=== PATIENT | female | born 1995 | race African-American/Black ===

== ENCOUNTER 2017-07-22 06:51 | Inpatient (IN) ==
[2017-07-22] MEDS: LACTATED RINGERS 1,000 ML IV SCH ×2 (07:10→16:55)
[2017-07-22] MEDS ORDERED: FAMOTIDINE 20 MG/2 ML VIAL IV ONE (07:11)
[2017-07-22] MEDS ORDERED: CITRIC ACID/SODIUM CITRATE 30 ML UDCUP PO ONE (07:11)
[2017-07-22] MEDS ORDERED: ceFAZolin 2,000 MG in PREMIX 1 EACH IV ONE (07:11)
[2017-07-22 07:48] LABS: Basophils % 0.1 % (0.0-0.8); Eosinophils # 0.1 10*3/uL (0.0-0.87); Eosinophils % 1.6 % (0.00-10.9); Hematocrit 33.4 VOL% (35.7-47.0); Hemoglobin 11.1 GM/DL (12.0-16.0); Immature Granulocytes % 0.6 %; Immature Granulocytes Absolute 0.05 #; Lymphocytes # 2.4 10*3/uL (1.4-4.0); Lymphocytes % 29.2 % (21.3-54.2); Mean Corpuscular HGB Conc 33.2 GM/DL (32-36); Mean Corpuscular Hemoglobin 29 PG (27-34); Mean Corpuscular Volume 86.5 FL (87-102); Mean Platelet Volume 11.9 FL (9.6-12.0); Monocytes # 0.5 10*3/uL (0.11-0.8); Monocytes % 6.4 % (1.7-12.7); Neutrophils # 5.1 10*3/uL (1.4-7.4); Neutrophils % 62.1 % (38.7-73.9); Platelet Count 187 T/CUMM (130-400); Red Blood Count 3.86 MC/CUMM (3.8-5.5); Red Cell Distribution Width 15.2 % (9.3-17.3); White Blood Count 8.3 T/CUMM (4-12)
[2017-07-22] MEDS ORDERED: OXYTOCIN/LR 20 UNIT/1,000 ML BAG IV ONE ×2 (07:59→09:14)
[2017-07-22] MEDS ORDERED: ACETAMINOPHEN 325 MG TABLET PO PRN (09:14)
[2017-07-22] MEDS ORDERED: ONDANSETRON 4 MG/2 ML VIAL IV PRN (09:14)
[2017-07-22] MEDS ORDERED: RHO(D) IMMUNE GLOBULIN 300 MCG SYRINGE IM ONE (09:14)
[2017-07-22] MEDS ORDERED: LACTATED RINGERS 1,000 ML IV SCH (09:30)
[2017-07-22] MEDS ORDERED: MIDAZOLAM 2 MG/2 ML VIAL ONE (09:30)
[2017-07-22] MEDS ORDERED: MORPHINE 10 MG/10 ML VIAL ONE (09:30)
[2017-07-22] MEDS ORDERED: ONDANSETRON 4 MG/2 ML VIAL ONE (09:30)
[2017-07-22] MEDS ORDERED: LACTATED RINGERS 2,000 ML IV ONE (09:31)
[2017-07-22] MEDS ORDERED: ACETAMINOPHEN 1,000 MG/100 ML VIAL IV ONE (09:31)
[2017-07-22 09:37] LABS: Apearance,Urine CLEAR (Clear); Bilirubin,Urine Negative (Negative); Blood, Urine Negative (Negative); Glucose,Urine (UA) Negative (Negative); Ketones,Urine Negative (Negative); Mucus,Urine Occasional /LPF (Occasional); Nitrite,Urine Negative (Negative); Protein,Urine Negative; RBC,Urine <1 /HPF (0-4); Squamous Epithelial Cell,Urine Occasional /HPF (0-10); Urine Color Straw (Yellow); Urine Specific Gravity 1.006 (1.001-1.035); Urine Urobilinogen < 2.0 EU/DL (0.2-1.0); WBC,Urine <1 /HPF (0-6)
[2017-07-22] MEDS ORDERED: hydrOXYzine HCL 25 MG/1 ML VIAL IM PRN (10:54)
[2017-07-22] MEDS ORDERED: diphenhydrAMINE 50 MG/1 ML VIAL IV PRN (10:54)
[2017-07-22] MEDS: HYDROmorphone 2 MG/1 ML VIAL IV PRN ×3 (13:49→19:57)
[2017-07-22 16:42] LABS: Basophils % 0.1 % (0.0-0.8); Eosinophils # 0.1 10*3/uL (0.0-0.87); Eosinophils % 0.7 % (0.00-10.9); Hematocrit 31.1 VOL% (35.7-47.0); Hemoglobin 10.5 GM/DL (12.0-16.0); Immature Granulocytes % 0.5 %; Immature Granulocytes Absolute 0.05 #; Lymphocytes # 2.1 10*3/uL (1.4-4.0); Lymphocytes % 19.4 % (21.3-54.2); Mean Corpuscular HGB Conc 33.8 GM/DL (32-36); Mean Corpuscular Hemoglobin 29 PG (27-34); Mean Corpuscular Volume 84.5 FL (87-102); Mean Platelet Volume 11.9 FL (9.6-12.0); Monocytes # 0.6 10*3/uL (0.11-0.8); Monocytes % 5.4 % (1.7-12.7); Neutrophils % 73.9 % (38.7-73.9); Platelet Count 160 T/CUMM (130-400); Red Blood Count 3.68 MC/CUMM (3.8-5.5); Red Cell Distribution Width 15.2 % (9.3-17.3); White Blood Count 10.7 T/CUMM (4-12)
[2017-07-22] MEDS: ceFAZolin 1,000 MG in SYRINGE 1 EACH IV SCH ×2 (16:45→22:54)
[2017-07-22] MEDS ORDERED: HydrOXYzine PAMOATE 25 MG CAPSULE PO ONE (20:16)
[2017-07-22] MEDS ORDERED: DOCUSATE SODIUM 100 MG CAPSULE PO SCH (21:00)
[2017-07-22] MEDS ORDERED: HydrOXYzine PAMOATE 25 MG CAPSULE PO PRN (23:30)
[2017-07-23] MEDS ORDERED: ceFAZolin 1,000 MG in SYRINGE 1 EACH IV ONE
[2017-07-23] MEDS: HYDROmorphone 2 MG/1 ML VIAL IV PRN ×2 (00:46→03:45)
[2017-07-23] MEDS: LACTATED RINGERS 1,000 ML IV SCH (00:58)
[2017-07-23 06:47] LABS: Basophils % 0.1 % (0.0-0.8); Eosinophils # 0.1 10*3/uL (0.0-0.87); Eosinophils % 1.2 % (0.00-10.9); Hematocrit 32.5 VOL% (35.7-47.0); Hemoglobin 11.1 GM/DL (12.0-16.0); Immature Granulocytes % 0.3 %; Immature Granulocytes Absolute 0.03 #; Lymphocytes # 1.8 10*3/uL (1.4-4.0); Lymphocytes % 17.7 % (21.3-54.2); Mean Corpuscular HGB Conc 34.2 GM/DL (32-36); Mean Corpuscular Hemoglobin 29 PG (27-34); Mean Corpuscular Volume 83.5 FL (87-102); Monocytes # 0.8 10*3/uL (0.11-0.8); Monocytes % 7.9 % (1.7-12.7); Neutrophils # 7.3 10*3/uL (1.4-7.4); Neutrophils % 72.8 % (38.7-73.9); Platelet Count 188 T/CUMM (130-400); Red Blood Count 3.89 MC/CUMM (3.8-5.5); White Blood Count 10.1 T/CUMM (4-12)
[2017-07-23] MEDS: IBUPROFEN 800 MG TABLET PO PRN ×2 (08:09→16:02)
[2017-07-23] MEDS: MAGNESIUM HYDROXIDE SUSP 30 ML UDCUP PO PRN ×2 (08:10→20:00)
[2017-07-23] MEDS: DOCUSATE SODIUM 100 MG/10 ML UDCUP PO SCH ×2 (11:57→20:01)
[2017-07-23] MEDS: MULTIVITAMIN (PRENATAL) TABLET PO SCH (11:58)
[2017-07-23] MEDS ORDERED: BISACODYL 10 MG SUPP RECTAL PRN (19:45)
[2017-07-23] MEDS: SIMETHICONE CHEW 80 MG TABLET PO PRN (20:01)
[2017-07-24] MEDS: IBUPROFEN 800 MG TABLET PO PRN ×3 (00:02→19:42)
[2017-07-24] MEDS ORDERED: guaiFENesin 200 MG/10 ML UDCUP PO PRN (05:53)
[2017-07-24] MEDS: MULTIVITAMIN (PRENATAL) TABLET PO SCH (09:22)
[2017-07-24] MEDS: DOCUSATE SODIUM 100 MG/10 ML UDCUP PO SCH ×2 (09:23→20:05)
[2017-07-24] MEDS: SIMETHICONE CHEW 80 MG TABLET PO PRN (09:23)
[2017-07-25] MEDS: IBUPROFEN 800 MG TABLET PO PRN (06:28)
[2017-07-25 07:37] VITALS: BP 123/70
[2017-07-25] MEDS: MULTIVITAMIN (PRENATAL) TABLET PO SCH (08:32)
[2017-07-25] MEDS: DOCUSATE SODIUM 100 MG/10 ML UDCUP PO SCH (08:32)
== END 2017-07-25 15:45 | disposition home or self-care (01) | DRG 540 ==
LOC: N.LDOUT 06:51 → N.LD 06:53 → N.OB 13:15
PROVIDERS: ADMIT Obstetrics & Gynecology; ATTEND Obstetrics & Gynecology
PROC: LDCSECT (ICD-10-PCS; 2017-07-22 09:00)